=== PATIENT | male | born 1945 | race Caucasian/White ===

== ENCOUNTER 2017-02-11 10:03 | Emergency (ER) | payer MEDICARE ==
[~2017-02-11] VITALS: Ht 177.8 cm; Wt 78.0 kg
[2017-02-11 10:14] VITALS: BP 114/78; PULSE 85; RESP 16; TEMP 98.6; O2SAT 98
[2017-02-11] MEDS ORDERED: ATOR1TAB18 PO (11:06)
[2017-02-11] MEDS ORDERED: DOXY8SUS PO (11:06)
[2017-02-11] MEDS ORDERED: ASPI81CH37 CHEW (11:06)
[2017-02-11] MEDS ORDERED: LOSA50TA PO (11:06)
[2017-02-11] MEDS ORDERED: METO50TA11 PO (11:06)
--- NOTE | 2017-02-11 11:13 | PD ---
HPI . left knee skin infection Chief Complaint: Lump, Cyst, Hernia Time Seen by Provider: 11:13 Travel History International Travel<30 days: No Contact w/Intl Traveler<30days: No Traveled to known affect area: No History of Present Illness HPI 71-year-old male with history of hypertension, hyperlipidemia, old [place] and left knee surgery one year ago here with complaints of a bump that he has had for 3 weeks on the left knee. Patient tells me that he noticed some type of swelling on his left knee about 3 weeks ago and it was just there and not causing any problems. This morning he noticed it was red and irritated and when he put his jeans on the area popped and it has been draining blood. He denies any pain. He denies any fever or chills. He is from [facility] and will be returning on Saturday. His is in the process of making him an appointment with his doctor up there. He is here to see if he needs antibiotics. PFSH Past Medical History High Cholesterol: Yes Hypertension: Yes Tetanus Vaccination: < 5 Years Influenza Vaccination: Yes Past Surgical History Cardiac Surgery: Yes (AICD) Coronary Stent: Yes Joint Replacement: Yes (Lt. knee X's 3) Social History Alcohol Use: No Tobacco Use: No Substance Use: No Allergies-Medications (Allergen,Severity, Reaction): Coded Allergies: No Known Allergies (Unverified , 02/11/17) Reported Meds & Prescriptions Reported Meds & Active Scripts Active Bactroban Topical (Mupirocin) 2% Oint 1 Appl TOPICAL BID Bactrim DS (Sulfamethoxazole-Trimethoprim) 800-160 Mg Tab 1 Tab PO BID Reported Doxycycline Monohydrate Liq 25 Mg/5 Ml Susp 50 Mg PO DAILY Metoprolol Succinate ER 24 HR (Metoprolol Succinate) 50 Mg Tab 75 Mg PO DAILY Losartan (Losartan Potassium) 50 Mg Tab 50 Mg PO DAILY Atorvastatin (Atorvastatin Calcium) 80 Mg Tab 80 Mg PO HS Aspirin Low Dose (Aspirin) 81 Mg Chew 81 Mg CHEW DAILY Review of Systems General / Constitutional: No: Fever Eyes: No: Visual changes HENT: No: Headaches Cardiovascular: No: Chest Pain or Discomfort Respiratory: No: Shortness of Breath Gastrointestinal: No: Abdominal Pain Genitourinary: No: Dysuria Musculoskeletal: No: Pain Skin: Positive Other (left knee infection), No Rash Neurologic: No: Weakness Psychiatric: No: Depression Endocrine: No: Polydipsia Hematologic/Lymphatic: No: Easy Bruising Physical Exam Narrative GENERAL: AAO x 3, no acute distress, Well-nourished, well-developed patient. SKIN: Warm and dry. No visible rashes or bruising. left knee with small quarter sized area of cellulitis, erythema, mildly warm to touch, mild edema, non fluctuant, no abscess formation HEAD: Normocephalic and atraumatic. EYES: No scleral icterus. No injection or drainage. ENT: No nasal drainage noted. Mucous membranes pink. Airway patent. NECK: Supple, trachea midline. No JVD. CARDIOVASCULAR: Regular rate and rhythm without murmurs, gallops, or rubs. RESPIRATORY: Breath sounds equal bilaterally. No accessory muscle use. No rhonchi or rales. GASTROINTESTINAL: Abdomen soft, non-tender, nondistended. EXTREMITIES: No cyanosis or edema. see skin, left knee full ROM, no deformities BACK: Nontender without obvious deformity. No CVA tenderness. PSYCH: AAO x 3, normal affect. Data Data Last Documented VS Vital Signs Date Time Temp Pulse Resp B/P Pulse Ox O2 Delivery O2 Flow Rate FiO2 02/11/17 10:14 98.6 85 16 114/78 98 MDM Medical Decision Making Medical Screen Exam Complete: Yes Emergency Medical Condition: Yes Medical Record Reviewed: Yes (no prior) Differential Diagnosis cellulitis, less likely abscess, less likely septic joint Narrative Course 71-year-old male with history of hypertension, hyperlipidemia, old [place] and left knee surgery one year ago here with complaints of a bump that he has had for 3 weeks on the left knee. Patient tells me that he noticed some type of swelling on his left knee about 3 weeks ago and it was just there and not causing any problems. This morning he noticed it was red and irritated and when he put his jeans on the area popped and it has been draining blood. He denies any pain. He denies any fever or chills. He is from [facility] and will be returning on Saturday. His is in the process of making him an appointment with his doctor up there. He is here to see if he needs antibiotics. Patient seen and examined. He does have a small superficial cellulitis over the left knee. There is no definitive abscess formation. Recommend short course of antibiotics and follow-up with his primary care provider when he returns home. Patient verbalized understanding of instructions, questions were answered, and thanked me for their care. I advised them if their condition worsens, please return to the nearest emergency room for further care. Diagnosis Primary Impression: Cellulitis of left knee Additional Impression: Abrasion of left knee Qualified Code: S80.212A - Abrasion of left knee, initial encounter Patient Instructions: Acute Wound Care (ED), Cellulitis (ED), General Instructions Additional Instructions: Please return to emergency department if your symptoms return or worsen. Follow up with your primary care provider. Take medications as prescribed. [place] for worsening signs of infection which include increased redness, increased warmth, purulent drainage, increased swelling or streaking. Med/Other Pt SpecificInfo: Prescription(s) given Scripts Mupirocin Topical (Bactroban Topical)2% Oint1 Appl TOPICAL BID #1 TUBE Ref 0 Prov:Mau Merchant MD 02/11/17 Sulfamethoxazole-Trimethoprim (Bactrim DS)800-160 Mg Tab1 Tab PO BID #20 TAB Prov:Mau Merchant MD 02/11/17 Disposition: 01 DISCHARGE HOME Condition: Stable Amber Schumacher Feb 11, 2017 11:13
[2017-02-11] MEDS ORDERED: BACT2OIN TOPICAL (11:24)
[2017-02-11] MEDS ORDERED: BACT800T5 PO (11:24)
== END 2017-02-11 11:35 | disposition home or self-care (01) ==
LOC: PHEFT 10:03
DX: L03.116 Cellulitis of left lower limb (principal); S80.212A Abrasion, left knee, initial encounter; I10 Essential (primary) hypertension; I25.2 Old myocardial infarction; Z98.890 Other specified postprocedural states; X58.XXXA Exposure to other specified factors, initial encounter
CPT/HCPCS: 99283